=== PATIENT | female | born 1955 | race Native Hawaiian/Other Pacific Islander ===

== ENCOUNTER 2016-12-29 10:24 | Outpatient (CLI) | payer MEDICARE ==
--- NOTE | 2016-12-29 13:00 | Mammography Report ---
Bilateral mammogram: No previous studies available. CAD study utilized. Findings: Predominance adipose tissue bilaterally. Focal ill-defined asymmetry in the posterior inner left breast in 3 mm asymmetry posterior outer left breast. No microcalcification. Normal axilla. Impression: Focal asymmetries left breast. Comparison with previous studies is recommended. If previous studies are not available spot mag and if necessary sonographic examination advised. BI-RADS CATEGORY: 0 = Needs additional imaging evaluation ACR BI-RADS MAMMOGRAPHIC CODES: 0 = Needs additional imaging evaluation; 1 = Negative; 2 = Benign; 3 = Probably benign; 4 = Suspicious; 5 = Malignant; 6 = Known biopsy-proven malignancy COMMENT: 1. Dense breast tissue, i.e., adenosis, fibrocystic changes, etc., may obscure an underlying neoplasm. 2. Approximately 10% of cancers are not detected with mammography. 3. A negative mammography report should not delay biopsy if a clinically suspicious mass is present. COMMENT: Patient follow-up letters are generated in [employer].
== END 2016-12-29 10:25 | disposition home or self-care (01) ==
LOC: SPVWC 10:24
DX: Z12.31 Encounter for screening mammogram for malignant neoplasm of breast (principal)
CPT/HCPCS: 77067; G0202

== ENCOUNTER 2017-04-16 09:36 | Outpatient (CLI) | payer MEDICARE | END 2017-04-16 09:37 | disposition home or self-care (01) | LOC: LABHHL 09:36 | PROVIDERS: ATTEND Surgery | DX: C50.912 Malignant neoplasm of unspecified site of left female breast (principal); R59.0 Localized enlarged lymph nodes | CPT/HCPCS: 88305; 88307; 88361 ==

== ENCOUNTER 2017-04-21 16:00 | Outpatient (CLI) | payer MEDICARE | END 2017-04-21 16:01 | disposition home or self-care (01) | LOC: LABHHL 16:00 | PROVIDERS: ATTEND Surgery | DX: N63.0 Unspecified lump in unspecified breast (principal) | CPT/HCPCS: 88305 ==

== ENCOUNTER 2017-05-12 06:19 | Observation (INO) | payer MEDICARE ==
[~2017-05-12 06:19] MED LIST: NACL 0.9% 1000 ML 1,000 ML IV SCH; PEPCID PO NR; VERSED IV NR
--- NOTE | 2017-05-12 07:48 | Anesthesia Consultation ---
Anesthesia Consult and Med Hx Date of service: 05/12/17 - Airway Anesthetic Teeth Evaluation: Good, Chipped (back molar) ROM Head & Neck: Adequate Mental/Hyoid Distance: Adequate Mallampati Class: Class II Intubation Access Assessment: Probably Good - Pulmonary Exam CTA: Yes - Cardiac Exam Cardiac Exam: RRR - Pre-Operative Health Status ASA Pre-Surgery Classification: ASA3 Proposed Anesthetic Plan: General - Pulmonary Hx Smoking: No Hx Sleep Apnea: No - Cardiovascular System Hx Hypertension: Yes - Central Nervous System Hx Psychiatric Problems: No - Gastrointestinal Hx Gastroesophageal Reflux Disease: Yes - Endocrine Hx Renal Disease: No Hx Liver Disease: Yes (h/o HEP C - treated and "cured" resulted in liver transplant) Hx Insulin Dependent Diabetes: No - Hematic Hx Anemia: No - Other Systems Hx Alcohol Use: Yes (socially) Hx Substance Use: No Hx Cancer: No Hx Obesity: Yes (BMI 30.9)
--- NOTE | 2017-05-12 07:49 | Anesthesia Day of Surgery ---
Anesthesia Day of Surgery - Day of Surgery Patient Examined: Yes Patient H&P Reviewed: Yes Patient is NPO: Yes Beta Blockers: Yes
[2017-05-12] MEDS ORDERED: ANCEF/STERILE WATER 2 GM/20 ML 2 GM/20 ML SYRINGE IV NR (08:00)
[2017-05-12] MEDS ORDERED: XYLOCAINE MPF 2% ONE (08:20)
[2017-05-12] MEDS ORDERED: DIPRIVAN 10 MG/ML IV ONE ×3 (08:20→10:00)
[2017-05-12] MEDS ORDERED: SUBLIMAZE ONE (08:20)
[2017-05-12] MEDS ORDERED: XYLOCAINE 1% 20 mL ONE (09:05)
[2017-05-12] MEDS ORDERED: HEPARIN 10,000 UNITS/10 ML ONE (09:06)
[2017-05-12] MEDS ORDERED: NACL 0.9% 100 ML ONE (09:06)
[2017-05-12] MEDS ORDERED: NACL 0.9% IR ONE (09:39)
[2017-05-12] MEDS ORDERED: XYLOCAINE 1% 20 mL INFILTRATI ONE ×2 (09:39)
[2017-05-12] MEDS ORDERED: NACL 0.9% IV ONE (09:39)
[2017-05-12] MEDS ORDERED: HEPARIN 10,000 UNITS/10 ML IV ONE (09:39)
[2017-05-12] MEDS ORDERED: ZOFRAN IV PRN ×2 (11:01→12:58)
--- NOTE | 2017-05-12 11:03 | Post Anesthesia Evaluation ---
- Post Anesthesia Evaluation Patient Participated: Yes Airway Patent: Yes Stable Respiratory Function: Yes Nausea/Vomiting: No Temp > 96.8F: Yes Pain Manageable: Yes Adequeate Hydration: Yes Anesthesia Complications: No
--- NOTE | 2017-05-12 11:05 | Operative Report ---
Operative Report Operative Report: Date of Service: May 12, 2017 Preoperative diagnosis: Left breast cancer of the upper outer and upper inner quadrants in need of central venous access Postoperative diagnosis: Same Procedure: Left port placement under fluoroscopy guidance Surgeon: Imelda Beck M.D. Asst.: Dr. Morrow Anesthesia: Local Mac Findings: Right port placement in good position with placement confirmed under fluoroscopy guidance; 5-10% pneumothorax after placement Complications: 5-10% right pneumothorax Estimated blood loss: Minimal Disposition: PACU in good condition Indications for operative procedure: This is a 62-year-old lady with advanced stage left breast cancer of the upper outer and upper inner quadrants. Recommendations are to proceed with neoadjuvant chemotherapy. Patient in need of central venous access to start chemotherapy. Procedure in detail: The patient was taken to the operating room and was laid supine. Local Mac anesthesia was administered. Bilateral neck and chest were prepped and draped in the normal sterile operative fashion. Timeout was performed. Sternal notch including right pectoral groove was identified. The area for central venous access was anesthetized with 1% lidocaine. The right sublcavian vein was accessed with the syringe and needle attached with some difficulty and good backflow of blood was noted. Wire was introduced through the needle. Placement of wire was confirmed under fluoroscopy guidance. A skin incision was then made at wire insertion site with a 15 blade knife after the skin was appropriately anesthetized. Bovie cautery was used to create the pocket for port placement. Dilator and sheath were then threaded through the wire in Seldinger technique. The wire and dilator were then removed. The catheter was then inserted through the sheath without incident. The catheter was tested with good backflow of blood and placement confirmed under flouroscopy. The sheath was then peeled back. The catheter was cut to size. The catheter was then attached to the port. The port was placed in the appropriate pocket that was created. The port was tested with good backflow of blood noted. Fluoroscopy was performed with port in good placement and no concerns for a pneumothorax. The port was sutured into place. The port was flushed with heparin. The skin incision was then approximated and closed using interrupted 3- 0 Vicryl and then closed using a running 4-0 Monocryl and skin affix. Upright chest x-ray performed in operating room with port in good placement and findings of a 5-10%pneumothorax. She tolerated surgery very well and was awakened from anesthesia and transported to PACU in good condition. Will repeat chest xray in [address] IR place right chest pigtail chest tube with worsening pnuemothorax.
--- NOTE | 2017-05-12 11:07 | Short Stay Summary ---
Short Stay Documentation Date of service: 05/12/17 - History H&P: obtained from office - Allergies and Medications Current Medications: Allergies morphine Allergy (Severe, Verified 04/28/17 15:34) Unknown Home Medications Medication Instructions Recorded Confirmed Last Taken Type RX: Metoprolol Tartrate 25 mg PO BID 04/28/17 05/12/17 05/11/17 09:00 History amLODIPine [Norvasc] 5 mg PO DAILY 04/28/17 05/12/17 05/11/17 09:00 History traMADol [Ultram] 50 mg PO Q6HR PRN 04/28/17 05/12/17 3 Days Ago History Tacrolimus [Tacrolimus] 1 mg PO DAILY 05/12/17 05/12/17 05/11/17 09:00 History Active Medications Acetaminophen/Hydrocodone Bitart ([place] 5/325) 1 each PO ONCE PRN PRN Reason: Pain, Moderate (4-6) Stop: 05/12/17 13:01 Famotidine (Pepcid) 20 mg PO PREOP NR Stop: 05/12/17 23:59 Last Admin: 05/12/17 07:49 Dose: 20 mg Hydromorphone HCl (Dilaudid) 0.5 mg IV Q10MIN PRN PRN Reason: Severe Pain Stop: 05/15/17 11:02 Sodium Chloride (Nacl 0.9% 1000 Ml) 1,000 mls @ 75 mls/hr IV DIRECT CRIS Last Admin: 05/12/17 07:49 Dose: 75 mls/hr Cefazolin Sodium (Ancef/Sterile Water 2 Gm/20 Ml) 2 gm in 20 mls @ 80 mls/hr IV PREOP NR PRN Reason: Protocol Stop: 05/12/17 12:00 Midazolam HCl (Versed) 2 mg IV PREOP NR Stop: 05/12/17 23:59 Last Admin: 05/12/17 07:49 Dose: 2 mg Ondansetron HCl (Zofran) 4 mg IV ONCE PRN PRN Reason: Nausea And Vomiting Stop: 05/12/17 11:02 - Brief post op/procedure progress note Date of procedure: 05/12/17 Pre-op diagnosis: Multicentric left breast cancer Post-op diagnosis: same Procedure: Right port placement Anesthesia: MAC Findings: Right port placement in good position; 5-10% pneumothorax Surgeon: JEREMY SORENSON Blood [employer]or Recruiter Supervisor: STEFFEN COLLAZO Estimated blood loss: minimal Pathology: none Condition: stable - Disposition Condition at discharge: Good Disposition: DC/TX-02 SHRT-TRM GEN HOSP IP Short Stay Discharge Plan Activity: other (no heavy lifting) Diet: regular Wound: other (keep incision clean and dry and may shower in 24 hours; no baths, pools or lakes) Follow up with: ESTHER LOCKE [Other] - 7 Days JEREMY SORENSON MD [Staff Physician] - 7 Days
[2017-05-12] MEDS: DILAUDID IV PRN ×2 (11:15→11:25)
--- NOTE | 2017-05-12 11:17 | Fluoroscopy Report ---
Single view Chest: History: Left breast cancer. Findings: Cardiomegaly. Trachea is midline. Perihilar infiltrates. Tip of Cwxixy-w-Somh in upper superior vena cava. There is noted 2 cm width right apical pneumothorax. Impression: Tip of right Nejjhq-s-Vbta in upper superior vena cava placed. There is noted right apical pneumothorax.
[2017-05-12] MEDS ORDERED: TYLENOL PO PRN (12:58)
[2017-05-12] MEDS ORDERED: NORCO 5/325 PO PRN (13:00)
--- NOTE | 2017-05-12 13:10 | Event Note ---
Date: 05/12/17 Patient has pneumothorax on post operative CXR. Repeat CXR at 1245pm shows small apical PTX on right, stable. Patient O2sat 100% on nonrebreather. VSS. Patient able to converse without SOB. Will send patient to IR for pigtail catheter placement on left. She will be placed under observation x 24 hours. Patient informed and all questions answered. Dr. Beck aware.
[2017-05-12] MEDS ORDERED: ULTRAM PO PRN (13:38)
--- NOTE | 2017-05-12 13:43 | XRay Report ---
Portable chest: Re-evaluation of pneumothorax Comparison made to prior study of 10:40 AM. No change in right port position There is a 3 cm apical right pneumothorax. The bronchovascular markings are generally increased bilaterally with areas linear atelectasis in the mid and lower left lung. There is no vascular congestion. The heart is normal in size. The mediastinum is midline. Compared to prior exam the overall pulmonary findings have shown some improvement however the pneumothorax is slightly increased. Impression: Suspect mild increase in right pneumothorax. Multiple areas of focal left atelectasis/fibrosis.
[2017-05-12] MEDS ORDERED: PROGRAF PO SCH (14:00)
[2017-05-12] MEDS ORDERED: NORVASC PO SCH (14:00)
--- NOTE | 2017-05-12 16:54 | Event Note ---
Date: 05/12/17 I was contacted by the general surgeon to evaluate the patient's x-ray for possible chest tube placement. The post-port placement x-ray showed a small pneumothorax, and a subsequent two hour follow-up showed decrease in size of the pneumothorax. I was informed that the patient was stable and not in any pain. Due to the diminutive size of the pneumothorax cavity, I did not think pigtail catheter placement could be facilitated, I suggested follow up chest x- ray evaluation. If the patient remaind stable, no percutaneous intervention is needed.
[2017-05-12] MEDS: LOPRESSOR PO SCH ×2 (17:46→21:56)
--- NOTE | 2017-05-12 18:27 | XRay Report ---
FINAL REPORT EXAM: XR CHEST 1V AP HISTORY: right pneumothorax TECHNIQUE: AP portable view of the chest PRIORS: None FINDINGS: Lines, tubes, and devices: A right sided port catheter terminates in the proximal superior vena cava, unchanged. Lungs and pleura: Trachea is normal in position. There is a right apical pneumothorax which measures 1.6 cm from the apical pleural margin. Minimal linear markings in the left midlung zone are stable. There is no focal consolidation, pleural effusion, or vascular congestion. Cardiomediastinal silhouette: Cardiac and mediastinal silhouettes are unremarkable. No mediastinal shift is seen. Other: Bony structures are intact. IMPRESSION: Small right apical pneumothorax.
[2017-05-13 06:00] VITALS: BP 100/60
--- NOTE | 2017-05-13 08:30 | XRay Report ---
AP CHEST: HISTORY: Follow up right pneumothorax Compared to 05/12/17 at 1724 hrs. The small right apical pneumothorax is no longer visualized. The lungs are clear. Heart and mediastinal structures are within normal limits. Right Subbji-c-Cfkt remains in the same position. IMPRESSION: Small right apical pneumothorax has resolved since yesterday's exam. No new acute process.
--- NOTE | 2017-05-13 09:12 | XRay Report ---
Chest 2 views: Compared to 05/13/17. History: Possible pneumothorax. Findings: Normal cardiomediastinal silhouette. Trachea is midline. Scarring with discoid atelectasis left lower lobe. Stable Tiuojq-e-Wsvn. Impression: Cardiomegaly. Scarring with discoid atelectasis left lower lobe.
--- NOTE | 2017-05-13 09:26 | Discharge Summary ---
Providers - Providers Date of Admission: 05/12/17 12:58 Date of discharge: 05/13/17 Attending physician: JEREMY SORENSON 05/12/17 13:03 Consult to Interventional Radiology [CONS] Stat Consulting Provider: WOOD WATSON Reason For Exam: small right pneumothorax Notified:: dr. watson Was contact made?: Yes Hospitalization Reason for admission: pneumothorax R Condition: Good Pertinent studies: CXR series Hospital course: 62 yo F with Left breast cancer presented for elective port placement. Post op xray showed small apical PTX. Patient was admitted for observation and serial CXR, O2. AM CXR showed resolution of PTX. Patient's VSS and pain controlled. Disposition: DC-01 TO HOME OR SELFCARE - Discharge Diagnoses (1) Pneumothorax Status: Resolved Qualifiers: Pneumothorax type: postprocedural Encounter type: E Qualified Code(s): J95.811 - Postprocedural pneumothorax Core Measure Documentation - Palliative Care Palliative Care/ Comfort Measures: Not Applicable - Core Measures Any of the following diagnoses?: none Exam - Physical Exam Narrative exam: Gen: AAOx3. NAD CV: S1, S2+ Resp: CTAB no w/r/r. R chest wall incisions c/d/i. mild ecchymosis, no hematoma - Constitutional Vitals: Temp Pulse Resp BP Pulse Ox 98.8 F 80 18 100/60 99 05/13/17 06:00 05/13/17 06:00 05/13/17 06:00 05/13/17 06:00 05/13/17 00:25 Plan Activity: no restrictions Diet: regular Wound: open to air Follow up with: ESTHER LOCKE [Other] - 7 Days JEREMY SORENSON MD [Staff Physician] - 7 Days WILDER SILVA MD [Staff Physician] - 05/13/17
[2017-05-13] MEDS ORDERED: FLEXERIL PO PRN (09:30)
== END 2017-05-13 10:00 | disposition home or self-care (01) ==
LOC: OR 06:19 → 3B-SURG 12:58
PROVIDERS: ADMIT Surgery; ATTEND Surgery
DX: C50.412 Malignant neoplasm of upper-outer quadrant of left female breast (principal); C50.212 Malignant neoplasm of upper-inner quadrant of left female breast; J93.9 Pneumothorax, unspecified
CPT/HCPCS: 36561; 71010; 71020; 77001; 94760; 96374; C1788; G0378; J0690; J1170; J1644; J2250; J2704; J3010; J7030; J7507

== ENCOUNTER 2017-06-15 11:41 | Outpatient (CLI) | payer MEDICARE | END 2017-06-15 11:42 | disposition home or self-care (01) | LOC: LABHHL 11:41 | PROVIDERS: ATTEND Surgery | DX: C50.912 Malignant neoplasm of unspecified site of left female breast (principal) | CPT/HCPCS: 88368 ==

== ENCOUNTER 2017-06-28 09:11 | Outpatient (CLI) | payer MEDICARE ==
--- NOTE | 2017-06-28 11:40 | Ultrasound Report ---
Left breast ultrasound: Patient with known multicentric inflammatory breast cancer. MRI raising question of lateral lesion not previously biopsied. Ultrasound of the lateral breast failed to clearly identify a discrete breast abnormality to biopsy under ultrasound. Abnormal appearing lymph nodes however in the axilla are noted and previously biopsied. Impression: Lateral breast lesion not clearly identified for biopsy. Recommendation: Recommend biopsy under MR localization where it was initially identified. The findings and recommendations have been discussed with the patient. BI-RADS CATEGORY: 4 = Suspicious ACR BI-RADS MAMMOGRAPHIC CODES: 0 = Needs additional imaging evaluation; 1 = Negative; 2 = Benign; 3 = Probably benign; 4 = Suspicious; 5 = Malignant; 6 = Known biopsy-proven malignancy COMMENT: 1. Dense breast tissue, i.e., adenosis, fibrocystic changes, etc., may obscure an underlying neoplasm. 2. Approximately 10% of cancers are not detected with mammography. 3. A negative mammography report should not delay biopsy if a clinically suspicious mass is present.
== END 2017-06-28 09:12 | disposition home or self-care (01) ==
LOC: SPVWC 09:11
PROVIDERS: ATTEND Internal Medicine Hematology & Oncology
DX: C50.212 Malignant neoplasm of upper-inner quadrant of left female breast (principal)